=== PATIENT | male | born 1990 | race Caucasian/White ===

== ENCOUNTER 2018-09-04 05:24 | Emergency (ER) | payer MEDICAID ==
[~2018-09-04] VITALS: Ht 180.3 cm; Wt 112.8 kg
[~2018-09-04 05:24] MED LIST: CHLO25CA10 PO; CYCL-1 PO; IBUP-1986 PO
--- NOTE | 2018-09-04 05:40 | NUR ---
[facility]is notified case # [id number]
--- NOTE | 2018-09-04 06:30 | NUR ---
SO at bedside.
[2018-09-04 07:24] VITALS: BP 153/113
--- NOTE | 2018-09-04 07:43 | NUR ---
Confirmed with pt that he has a safe ride home if needed.
[2018-09-04] MEDS ORDERED: CLINDAmcin 900mg/NS 50ml IVPB 50 ML IV ONE (08:00)
[2018-09-04] MEDS ORDERED: morphine 4 MG/ML inj SYRINge IV ONE (08:00)
[2018-09-04] MEDS ORDERED: ondansetron/PF 4mg/2ml inj IV ONE (08:30)
[2018-09-04] MEDS ORDERED: TETanus/Pertussis (Acell)/Diphther VAC/PF (Tdap-Adult) 0.5ml syringe IM ONE (09:00)
[2018-09-04] MEDS ORDERED: amoxicillin 250mg capsule PO ONE (09:00)
[2018-09-04] MEDS ORDERED: HYDR-4353 PO (09:03)
[2018-09-04] MEDS ORDERED: AMOX500C2 PO (09:03)
[2018-09-04] MEDS ORDERED: OXYC-150 PO (22:48)
== END 2018-09-04 10:13 | disposition home or self-care (01) ==
LOC: ER 05:24
DX: S02.602A Fracture of unspecified part of body of left mandible, initial encounter for closed fracture (principal); G89.29 Other chronic pain; F12.90 Cannabis use, unspecified, uncomplicated; Z98.890 Other specified postprocedural states; Y04.0XXA Assault by unarmed brawl or fight, initial encounter; Y93.89 Activity, other specified; Y92.89 Other specified places as the place of occurrence of the external cause; Y99.9 Unspecified external cause status
CPT/HCPCS: 70486; 90471; 90715; 96365; 96375; 99284; J2270; J2405; J3490

== ENCOUNTER 2018-09-04 22:10 | Emergency (ER) | payer MEDICAID ==
[~2018-09-04] VITALS: Ht 180.3 cm; Wt 112.4 kg
[~2018-09-04 22:10] MED LIST changes: +AMOX500C2 PO; +HYDR-4353 PO
[2018-09-04 22:23] VITALS: BP 177/130
[2018-09-04] MEDS ORDERED: OXYC-150 PO (22:48)
[2018-09-04] MEDS ORDERED: morphine 4 MG/ML inj SYRINge IM ONE (22:50)
[2018-09-04] MEDS ORDERED: diphenhydrAMINE 50 mg/ml inj IM ONE (23:00)
== END 2018-09-04 23:03 | disposition home or self-care (01) ==
LOC: ER 22:11
DX: S02.69XD Fracture of mandible of other specified site, subsequent encounter for fracture with routine healing (principal); G89.29 Other chronic pain; F12.90 Cannabis use, unspecified, uncomplicated; Z98.890 Other specified postprocedural states; Z79.899 Other long term (current) drug therapy; X58.XXXD Exposure to other specified factors, subsequent encounter
CPT/HCPCS: 96372; 99283; J1200; J2270